=== PATIENT | female | born 1965 | race Caucasian/White ===

== ENCOUNTER 2021-02-06 05:47 | Observation (INO) ==
[2021-02-06] MEDS ORDERED: Dexamethasone IV 4 MG/ML VIAL 1 ml VIAL IV SLOW PU ONE (06:00)
[2021-02-06] MEDS ORDERED: Lactated Ringers 1000 ml BAG 1,000 ML IV SCH (06:00)
[2021-02-06] MEDS ORDERED: Buffered Lidocaine 1% SYRIN 1 ml INTRADERM ONE (06:00)
[2021-02-06] MEDS ORDERED: Famotidine IV 10 MG/ML 2 ml VIAL (20 mg) IV ONE (06:00)
[2021-02-06] MEDS ORDERED: Dexamethasone IV 4 MG/ML VIAL 1 ml VIAL ONE ×2 (06:20→07:02)
[2021-02-06] MEDS ORDERED: ceFAZolin 2 GM PREMIX 2 GM/50 ML BAG ONE (06:21)
[2021-02-06] MEDS ORDERED: Famotidine IV 10 MG/ML 2 ml VIAL (20 mg) ONE (06:21)
[2021-02-06] MEDS ORDERED: Phenylephrine IV 10 MG/ML 1 ml VIAL ONE (07:02)
[2021-02-06] MEDS ORDERED: Lidocaine 2% PF 5 ML VIAL ONE (07:02)
[2021-02-06] MEDS ORDERED: Ondansetron 4 mg VIAL 2 MG/ML 2 ml VIAL ONE (07:02)
[2021-02-06] MEDS ORDERED: Midazolam 2 mg/2 ml VIAL 1 mg/ml 2 ml VIAL (2 mg) ONE ×2 (07:05→07:16)
[2021-02-06] MEDS ORDERED: fentaNYL 100 mcg/2 ml 50 MCG/ML VIAL ONE ×2 (07:05→07:16)
[2021-02-06] MEDS ORDERED: Bupivacaine 0.25% EPI 200,000 30 ML SDV ONE (07:20)
[2021-02-06] MEDS ORDERED: Vancomycin 1,000 MG VIAL ONE (07:20)
[2021-02-06] MEDS ORDERED: Ropivacaine 5 MG/ML 20 ML VIAL 0.5% (100 MG) ONE (07:22)
[2021-02-06] MEDS ORDERED: Propofol 10 mg/ml 100 ML BTL 100 ML ONE (07:28)
[2021-02-06] MEDS ORDERED: Ketamine HCL 50 mg/ml 10 ml VIAL (500 MG) ONE (07:36)
[2021-02-06] MEDS ORDERED: Prochlorperazine 5 mg/ml 2 ml VIAL (10 mg) IV PRN (07:49)
[2021-02-06] MEDS ORDERED: Naloxone 0.4 mg VIAL 0.4 mg/ml 1 ml VIAL IV PRN (07:49)
[2021-02-06] MEDS ORDERED: Morphine 4 MG/ML VIAL (1 ml) IV PRN (07:49)
[2021-02-06] MEDS ORDERED: fentaNYL 100 mcg/2 ml 50 MCG/ML VIAL IV PRN (07:49)
[2021-02-06] MEDS ORDERED: Bupivacaine 0.5% SDV PF 30ML VIAL ONE (08:04)
[2021-02-06] MEDS ORDERED: Acetaminophen IV 1 GM/100ML 100 ML ONE (10:38)
[2021-02-06] MEDS ORDERED: Propofol 10 MG/ML 20 ML BTL ONE (10:58)
[2021-02-06] MEDS ORDERED: Morphine 2 MG/ML SYRINGE IV PRN (11:29)
[2021-02-06] MEDS ORDERED: diPHENhydraMINE 25 mg TAB PO PRN (11:29)
[2021-02-06] MEDS ORDERED: Magnesium Hydroxide LIQ 30 ML UDC PO PRN (11:29)
[2021-02-06] MEDS ORDERED: Ondansetron 4 mg VIAL 2 MG/ML 2 ml VIAL IV PRN (11:29)
[2021-02-06] MEDS ORDERED: Ondansetron ODT 4 mg TAB 4 MG TAB PO PRN (11:29)
[2021-02-06] MEDS ORDERED: Lactulose 30 ml UDC PO PRN (11:29)
[2021-02-06] MEDS ORDERED: diPHENhydraMINE IV 50 MG/ML 1 ml VIAL (BENADRYL) IV PRN (11:29)
[2021-02-06] MEDS: Lactated Ringers 1000 ml BAG 1,000 ML IV SCH (13:00)
[2021-02-06] MEDS: ceFAZolin 1 GM ADVAN 1 GM in NS 0.9% 50 ML 50 ML IVPB SCH (16:39)
[2021-02-06] MEDS: Magnesium Hydroxide LIQ 30 ML UDC PO SCH (23:18)
[2021-02-07] MEDS: ceFAZolin 1 GM ADVAN 1 GM in NS 0.9% 50 ML 50 ML IVPB SCH ×2 (00:16→07:51)
[2021-02-07] MEDS: Lactated Ringers 1000 ml BAG 1,000 ML IV SCH (02:41)
[2021-02-07 07:11] LABS: Hematocrit 35 % (35-47); Hemoglobin 10.6 g/dL (12.0-16.0); Mean Platelet Volume 9.4 fL (7.4-10.4); Platelet Count 235 10^3/uL (150-450)
[2021-02-07 07:13] LABS: BUN/Creatinine Ratio 14.5 (8-20); Calcium 8.9 mg/dL (8.6-10.3); EGFR African American 106.9 (>60); EGFR Non-African American 88.3 (>60); Potassium 3.7 mmol/L (3.5-5.0)
[2021-02-07] MEDS: Magnesium Hydroxide LIQ 30 ML UDC PO SCH ×2 (08:47→08:48)
[2021-02-07] MEDS ORDERED: Vitamin THERAPEUTIC TAB PO SCH (09:00)
[2021-02-07 11:47] VITALS: BP 113/64
== END 2021-02-07 14:15 | disposition home or self-care (01) ==
LOC: SSU 05:47 → OR 05:47 → EDSTATUS 07:30
PROVIDERS: ADMIT Orthopaedic Surgery; ATTEND Orthopaedic Surgery

== ENCOUNTER 2024-02-03 05:34 | Inpatient (IN) ==
[~2024-02-03 05:34] MED LIST: Metoclopramide 5 MG/ML VIAL (10 mg) IV PRN; NS 0.45% 1000 ml BAG 1,000 ML IV SCH; Naloxone 0.4 mg VIAL 0.4 mg/ml 1 ml VIAL IV PRN; Ondansetron 4 mg VIAL 2 MG/ML 2 ml VIAL IV PRN; fentaNYL 100 mcg/2 ml 50 MCG/ML VIAL IV PRN
[2024-02-03] MEDS ORDERED: ceFAZolin 2 GM PREMIX 2 GM/50 ML BAG ONE (06:02)
[2024-02-03 06:09] LABS: Rapid COVID-19 Molecular Undetected (Undetected)
[2024-02-03] MEDS: Lactated Ringers 1000 ml BAG 1,000 ML IV SCH ×2 (07:03→13:20)
[2024-02-03] MEDS ORDERED: Vancomycin 1,000 MG VIAL ONE (07:03)
[2024-02-03] MEDS ORDERED: fentaNYL 100 mcg/2 ml 50 MCG/ML VIAL ONE (07:04)
[2024-02-03] MEDS ORDERED: Midazolam 2 mg/2 ml VIAL 1 mg/ml 2 ml VIAL (2 mg) ONE ×2 (07:05→07:22)
[2024-02-03] MEDS ORDERED: ROPIVACAINE 5 MG/ML 30 ML BTL (0.5%) ONE (07:05)
[2024-02-03] MEDS ORDERED: Dexamethasone IV 4 MG/ML VIAL 1 ml VIAL ONE (07:05)
[2024-02-03] MEDS ORDERED: Dexmedetomidine 200 mcg/2 ml 2 ml VIAL (200 mcg) ONE (07:22)
[2024-02-03] MEDS ORDERED: Tranexamic Acid 1 GM/100ML BAG 2,000 MG/200 ML BAG IV ONE (07:36)
[2024-02-03] MEDS ORDERED: Morphine 2 MG/ML SYRINGE IV PRN (10:50)
[2024-02-03] MEDS ORDERED: Lactulose 30 ml UDC PO PRN (10:50)
[2024-02-03] MEDS ORDERED: Ondansetron 4 mg VIAL 2 MG/ML 2 ml VIAL IV PRN (10:50)
[2024-02-03] MEDS ORDERED: Ondansetron ODT 4 mg TAB 4 MG TAB PO PRN (10:50)
[2024-02-03] MEDS ORDERED: Magnesium Hydroxide LIQ 30 ML UDC PO PRN (10:50)
[2024-02-03] MEDS: Buffered Lidocaine 1% SYRIN 1 ml INTRADERM ONE (12:36)
[2024-02-03] MEDS: Scopolamine 1 mg/72hr PATCH TRANSDERM ONE (13:47)
[2024-02-03] MEDS: Acetaminophen IV 1 GM/100ML 1,000 MG/100 ML BAG IV ONE (13:47)
[2024-02-03 15:33] VITALS: BP 112/73
[2024-02-03] MEDS: ceFAZolin 1 GM ADVAN 1 GM in NS 0.9% 50 ML 50 ML IVPB SCH (16:01)
[2024-02-03] MEDS ORDERED: Magnesium Hydroxide LIQ 30 ML UDC PO SCH (21:00)
[2024-02-04] MEDS ORDERED: Vitamin THERAPEUTIC TAB PO SCH (09:00)
== END 2024-02-03 17:45 | disposition home or self-care (01) | DRG 302 ==
LOC: AA 05:34 → SSU 10:50
PROVIDERS: ADMIT Orthopaedic Surgery; ATTEND Orthopaedic Surgery